=== PATIENT | male | born 1975 | race Caucasian/White ===

== ENCOUNTER 2016-10-20 15:02 | Emergency (ER) | payer OTHER ==
[~2016-10-20] VITALS: Ht 172.7 cm; Wt 159.0 kg
[~2016-10-20 15:02] MED LIST: CYCL7.5T27 PO; NPR500T PO; PRED50TA PO
[2016-10-20 15:06] VITALS: BP 162/97; PULSE 105; RESP 16; O2SAT 95
--- NOTE | 2016-10-20 15:17 | ED.REPORT ---
HPI-Chest Pain 40 and Over Date of Service Oct 20, 2016 ED Provider: Shaheen Velazquez MD THe pt is a 41 y/o male w/ a hx of HTN presenting to the ED complaining of chest pain onset 1 week ago. He describes it as a stabbing, stomping sensation on his chest and like an "air bubble" is stuck. The pt also reports numbness and tingling which spread to his L arm. He also is experiencing SOB and pain w/ inspiration, as well as dizziness which caused him to fall 2 days ago. He has taken 2 81 mg aspirins this morning. Denies peripheral edema, fever. Nursing Notes Stated Complaint: CHEST PAIN, SHORTNESS OF BREATH, DIZZINESS Chief Complaint: Chest Pain Nursing Notes Reviewed: Yes ([employer] not reconciled) Allergies: Coded Allergies: Shellfish (Verified Allergy, Severe, Anaphylaxis, 10/23/15) iodine (Verified Allergy, Severe, Anaphylaxis, 10/23/15) Scheduled Prednisone (PredniSONE) 50 Mg Tablet 50 MG PO DAILY Scheduled PRN Cyclobenzaprine (Cyclobenzaprine) 7.5 Mg Tablet 7.5 MG PO TID PRN PRN Spasm Naproxen (Naproxen) 500 Mg Tab 500 MG PO BID PRN PRN For Pain General Time Seen by MD: 15:12 Chief Complaint Chest pain Hx Obtained From: Patient Arrived By: Walk-in Sudden in Onset?: Yes Onset Occurred: 1 week ago Recent Healthcare: No recent hospitalization, Recent doctor visit Similar Sx Previous: No Past Medical History Past Medical History morbid obesity Reports: Hypertension Past Surgical History none reported Family History grandparents history of [place] grandfather of aortic anyurism Smoking History Never Smoker Social History Alcohol Use: Denies alcohol use Drug Use: Denies drug use Occupation unemployed Ambulatory Status Independent Review of Systems Constitutional: Denies: Fever Respiratory: Reports: Shortness of breath Cardiovascular: Reports: Chest pain, Denies: Edema Neurologic: Reports: Dizziness, Numbness (L arm ) Complete sys rev & neg: except as marked. Physical Exam Initial Vital Signs Vital Signs (First) Date Time Temp Pulse Resp B/P Pulse Ox O2 Delivery O2 Flow Rate FiO2 10/20/16 15:06 37.2 105 16 162/97 95 Room Air Initial VS: Reviewed, Vital signs abnormal Head / Eyes: Atraumatic, Normocephalic, PERRL Neck: Supple, Non-tender, Full range of motion Extremities: Vascular intact, Neuro intact, No swelling, No tenderness Skin: Warm, Dry, No cyanosis Neurologic: Alert, Oriented, Nonfocal Psychiatric: Mood/affect normal, Behavior normal, Normal thought content General/Constitutional: Awake, Alert Appearance / Presentation: Positive: Obese Respiratory / Chest: Atraumatic, Breath sounds NL, Breath sounds = bilat, No respiratory distress Cardiovascular: Heart rate NL, Regular rhythm, Heart sounds NL Abdomen: Atraumatic, Soft, Non-tender Interpretation & Diagnostics Lab Results Interpretation Result Diagram: 10/20/16 1530 10/20/16 1530 Test 10/20/16 15:30 White Blood Count 5.8th/mm3 (3.8-10.1) Red Blood Count 5.20mil/mm3 (4.40-5.80) Hemoglobin 15.5g/dL (13.8-17.2) Hematocrit 43.7% (41.0-50.0) Mean Corpuscular Volume 84.0fL (81-100) Mean Corpuscular Hemoglobin 29.8pg (27.0-35.0) Mean Corpuscular Hemoglobin Concent 35.5% (32.0-37.0) Red Cell Distribution Width 12.6% (12.3-15.4) Platelet Count 253bil/L (150-400) Neutrophils (%) (Auto) 58.6% (40-74) Lymphocytes (%) (Auto) 26.9% (14-46) Monocytes (%) (Auto) 10.4% (4-12) Eosinophils (%) (Auto) 3.1% (0-5) Basophils (%) (Auto) 1.0% (0-3) D-Dimer < 0.50mg/L FEU (<0.50) Sodium Level 138mEq/L (134-144) Potassium Level 3.9mEq/L (3.5-5.2) Chloride Level 98mEq/L (97-108) Carbon Dioxide Level 24mmol/L (18-29) Blood Urea Nitrogen 10mg/dL (6-24) Creatinine 0.76mg/dL (0.76-1.27) Estimat Glomerular Filtration Rate 120mL/min (>59) Glucose Level 123mg/dL (60-99) Calcium Level 9.9mg/dL (8.5-10.1) Magnesium Level 2.0mg/dL (1.6-2.6) Total Bilirubin 0.5mg/dL (0.0-1.2) Aspartate Amino Transf (AST/SGOT) 21U/L (0-50) Alanine Aminotransferase (ALT/SGPT) 20U/L (0-44) Alkaline Phosphatase 61U/L (25-150) Troponin T < 0.010ug/L (0.0-0.011) Total Protein 8.2g/dL (6.4-8.4) Albumin 4.5g/dL (3.4-5.0) Lab Results Interpretation: CBC normal CMP normal troponin negative after weeks long duration of continuous symptoms, so serial enzymes are not indicated or needed at this time D-dimer negative ECG Interpretation ECG Interpretation: Sinus tachycardia No ischemic change Time: 15:27 Interpreted by: ED physician X-Ray Chest Interpretation Chest Xray Interpretation: IMPRESSION: No acute cardiopulmonary abnormality. No source of chest pain seen. Dictated by: Nawaf Sandoval M.D. on 10/20/2016 at 15:29 Approved by: Nawaf Sandoval M.D. on 10/20/2016 at 15:29 View: Portable, 1 view Interpretation / Wet Read by: Interpret - Radiologist Re-Eval/Medical Decision Med Decision/Clinical Course This is a 41-year-old obese male presents complaining of atypical chest pain continuous over the past week. The patient's friends advised him to come in and get checked out, he actually did not want to. This no pleuritic discomfort , he has no prior history of heart disease and borderline family history( positive heart disease, but with age in the 70s and sudden -again in the age 70s).. Exam he appears well. He has a low-grade tachycardia but otherwise normal exam except for obesity. He has no markers of heart failure clinical exam and no overt venous thromboembolism is clinically apparent on physical exam. His EKG reveals sinus tachycardia but no ischemic changes. Blood work is normal , d-dimer is negative and in this low-risk patient and additional testing is not indicated. Chest x-rays negative. Again in the setting of someone who is 7 days and to continue his atypical symptoms, single enzymes adequate-I am not finding evidence of a dangerous etiology. There are no findings suggesting acute coronary syndrome. The patient's HEART score is 1 putting him at extremely low risk for MACE and indicating discharge is appropriate The patient is reassured, routine and return precautions are reviewed. Source of Hx: Old records Time of Eval: 17:17 Re-Evaluation/Progress Note: Pt rechecked. Informed pt of plan for treatment. Pt understands and agrees with plan for treatment. F/U instructions and RTER warnings given. All questions addressed. Differential Diagnosis: Positive: Chest pain, acute, Negative: Acute coronary syndrome, Acute myocardial infarct, Dysrhythmia, Esophageal rupture, Esophagitis, Gun shot wound chest, Pleurisy, Pneumonia, Pneumothorax, Pulmonary edema, Pulmonary embolism, Rib fracture, Stab wound chest Counseled Regarding: Diagnosis, Lab results, Need for follow-up, When/why to return to ED Discharge & Departure Primary Impression: Chest pain Chest pain type: unspecified Qualified Code: R07.9 - Chest pain, unspecified Disposition: Home Discharge Condition All VS Reviewed: Yes Condition: Stable Additional Instructions: 1. A dangerous cause of her chest discomfort was not identified. 2. Your blood tests, EKG, and x-ray were all normal. 3. Activities as tolerated. 4. Symptoms are expected to resolve with time. If you develop new or worsening symptoms, return to the ED. Referrals: Zahira Rod (PCP) Scribe Attestation Portions of this note were transcribed by Boyd Berry. I, Dr. Velazquez personally performed the history, physical exam and medical decision-making; I reviewed and confirmed the accuracy of the information in the transcribed note. Signed by : Giovani Ziegler, 10/20/16 and [id number]. copies to: Zahira Rod Matthew F MD Oct 20, 2016 15:17 Boyd Berry Oct 20, 2016 17:30
--- NOTE | 2016-10-20 15:31 | DRSVH ---
PROCEDURE: X-RAY CHEST ONE VIEW, PORTABLE ([id number]) INDICATIONS: chest pain TECHNIQUE: One view of the chest was acquired. COMPARISON: 05/27/2014 FINDINGS: Surgical changes and devices: None. Lungs and pleura: No pleural effusions or pneumothorax. Lungs are clear. Mediastinum: Mediastinal contours appear normal. Heart size is normal. Bones and chest wall: No suspicious bony lesions. Overlying soft tissues appear unremarkable. IMPRESSION: No acute cardiopulmonary abnormality. No source of chest pain seen. Dictated by: Nawaf Sandoval M.D. on 10/20/2016 at 15:29 Approved by: Nawaf Sandoval M.D. on 10/20/2016 at 15:29
[2016-10-20 15:47] LABS: EOSINOPHILS % (AUTO) 3.1 % (0-5); MONOCYTES % (AUTO) 10.4 % (4-12); Mean Corpuscular Hemoglobin 29.8 pg (27.0-35.0); NEUTROPHILS % (AUTO) 58.6 % (40-74); Platelet Count 253 bil/L (150-400)
[2016-10-20 16:23] LABS: TROPONIN T < 0.010 ug/L (0.0-0.011)
[2016-10-20 17:43] VITALS: BP 157/103; PULSE 101; RESP 18; O2SAT 96
== END 2016-10-20 17:43 | disposition home or self-care (01) ==
LOC: SED 15:02
DX: R07.89 Other chest pain (principal); I10 Essential (primary) hypertension; Z88.8 Allergy status to other drugs, medicaments and biological substances; Z91.013 Allergy to seafood